=== PATIENT | female | born 1965 | race Caucasian/White ===

== ENCOUNTER 2016-06-20 13:45 | Outpatient (RCR) | payer BC ==
[~2016-06-20 13:45] MED LIST: CYMBALTA 60MG60 MG PO; FORT1000TA PO; HYZAAR 25 MG-101 TAB PO; IRON325 M1 PO; LOTRISONE 0.05%1 CRE TP; MOBIC 7.5MG7.5 MG PO; NEURONTIN100 MG/CAP PO; NEURONTIN300 MG/CAP PO; OXYCONTIN 10MG10 MG PO; PRILOSEC 20MG20 MG PO; SYNTHROID0.2 MG/TAB PO; ULTRAM 50MG TAB50 MG PO; ZOVIRAX400 MG PO; [UNRECOGNIZED DRUG - CODE] NS; [UNRECOGNIZED DRUG - OTHER] PO
== END 2016-06-21 | disposition home or self-care (01) ==
LOC: WSPT
DX: M54.5 Low back pain (principal); M53.3 Sacrococcygeal disorders, not elsewhere classified

== ENCOUNTER 2016-07-11 13:15 | Outpatient (RCR) | payer BC | END 2016-08-10 12:07 | disposition home or self-care (01) | LOC: WSPT 13:15 | DX: M54.89 Other dorsalgia (principal); M53.3 Sacrococcygeal disorders, not elsewhere classified ==

== ENCOUNTER → 2016-11-02 | Outpatient (CLI) | payer BC | LOC: MC.RAD 13:40 | DX: Z12.31 Encounter for screening mammogram for malignant neoplasm of breast (principal) ==

== ENCOUNTER → 2018-02-27 | Outpatient (CLI) | payer BC | LOC: MHCPAIN 14:14 | DX: G89.29 Other chronic pain (principal); M47.817 Spondylosis without myelopathy or radiculopathy, lumbosacral region; M53.3 Sacrococcygeal disorders, not elsewhere classified | CPT/HCPCS: G0463 ==

== ENCOUNTER → 2018-03-01 | Outpatient (CLI) | payer BC | LOC: MHCPAIN 14:30 | DX: M47.817 Spondylosis without myelopathy or radiculopathy, lumbosacral region (principal); M54.16 Radiculopathy, lumbar region ==

== ENCOUNTER → 2018-03-06 | Outpatient (CLI) | payer BC | LOC: MHCPAIN 12:15 | DX: G89.29 Other chronic pain (principal); M47.817 Spondylosis without myelopathy or radiculopathy, lumbosacral region; M53.3 Sacrococcygeal disorders, not elsewhere classified | CPT/HCPCS: G0463 ==

== ENCOUNTER → 2018-03-22 | Outpatient (CLI) | payer BC | LOC: MHCPAIN 11:59 | DX: M47.817 Spondylosis without myelopathy or radiculopathy, lumbosacral region (principal); M54.16 Radiculopathy, lumbar region | CPT/HCPCS: J2250; J3010 ==

== ENCOUNTER → 2018-03-26 | Outpatient (CLI) | payer BC | LOC: MHCPAIN 11:59 | DX: M47.817 Spondylosis without myelopathy or radiculopathy, lumbosacral region (principal); M54.16 Radiculopathy, lumbar region | CPT/HCPCS: J2250; J3010 ==

== ENCOUNTER 2018-05-16 12:45 | Outpatient (RCR) | payer BC | END 2018-06-26 | disposition still patient (30) | LOC: WSPT | DX: M47.817 Spondylosis without myelopathy or radiculopathy, lumbosacral region (principal); M53.3 Sacrococcygeal disorders, not elsewhere classified; G89.29 Other chronic pain ==

== ENCOUNTER → 2018-05-30 | Outpatient (CLI) | payer BC | LOC: MHCPAIN 12:30 | DX: G89.29 Other chronic pain (principal); M47.817 Spondylosis without myelopathy or radiculopathy, lumbosacral region; M53.3 Sacrococcygeal disorders, not elsewhere classified | CPT/HCPCS: G0463 ==

== ENCOUNTER → 2018-09-25 | Outpatient (CLI) | payer BC, MEDICARE | LOC: MHCPAIN 12:48 | DX: G89.29 Other chronic pain (principal); M47.817 Spondylosis without myelopathy or radiculopathy, lumbosacral region; M54.16 Radiculopathy, lumbar region; M53.3 Sacrococcygeal disorders, not elsewhere classified | CPT/HCPCS: G0463 ==

== ENCOUNTER → 2019-06-03 | Outpatient (CLI) | payer BC, MEDICARE | LOC: MC.RAD 13:32 | DX: Z12.31 Encounter for screening mammogram for malignant neoplasm of breast (principal) ==

== ENCOUNTER 2020-05-20 15:21 | Emergency (ER) | payer BC, MEDICARE ==
[~2020-05-20] VITALS: Ht 167.6 cm; Wt 152.3 kg
[2020-05-20 16:53] LABS: BASO # 0.1 (0.0-0.2); BASO % 0.8 % (0.0-2.0); EOS # 0.2 (0.0-0.7); EOS % 2.4 % (0-4.0); GRAN # 5.6 (1.4-6.5); GRAN % 60.9 % (42.2-75.2); HEMATOCRIT 48.4 % (37.0-47.0); LYMPH # 2.3 (1.2-3.4); LYMPH % 24.4 % (20.0-51.0); MEAN CELL VOLUME 83 fl (80.0-100.0); MEAN CORPUSCULAR HEMOGLOBIN 28 pg (27.0-31.0); MEAN CORPUSCULAR HGB CONC 33 g/dl (33.0-37.0); MEAN PLATELET VOLUME 10.5 fl (7.4-10.4); MONO % 11.1 % (1.7-9.3); PLATELET COUNT 261 K/mm3 (130-400); RED BLOOD COUNT 5.82 M/mm3 (4.10-5.30)
[2020-05-20 17:14] LABS: ALBUMIN 4.3 gm/dL (3.5-5.0); BILIRUBIN,TOTAL 0.6 mg/dL (0.0-1.0); C-REACTIVE PROTEIN 7.2 mg/dL (0.0-0.9); CALCIUM 9.3 mg/dL (8.4-10.2); CREATININE, serum 0.7 (0.52-1.25); POTASSIUM 3.5 mmol/L (3.4-5.0); TOTAL PROTEIN 7.7 gm/dL (6.4-8.2)
[2020-05-20 18:03] LABS: INR 1.1 (0.8-3.0); PROTHROMBIN TIME 12.4 SECONDS (9.7-12.8)
[2020-05-20] MEDS ORDERED: CLEOCIN HCL300 MG PO (20:00)
[2020-05-20 20:25] VITALS: BP 118/64; PULSE 71; TEMP 98.9
== END 2020-05-20 20:25 | disposition home or self-care (01) ==
LOC: COL.ER 15:21
PROVIDERS: Nurse Practitioner
DX: L03.115 Cellulitis of right lower limb (principal); Z20.822 Contact with and (suspected) exposure to COVID-19; Z79.84 Long term (current) use of oral hypoglycemic drugs
CPT/HCPCS: Q9967

== ENCOUNTER → 2020-05-22 | Outpatient (CLI) | payer BC, MEDICARE ==
[~2020-05-22] MED LIST changes: +CLEOCIN HCL300 MG PO
== END ==
LOC: COL.VAS 12:22
DX: M79.661 Pain in right lower leg (principal); M79.89 Other specified soft tissue disorders; L53.9 Erythematous condition, unspecified

== ENCOUNTER 2020-09-07 15:45 | Outpatient (RCR) | payer SELFPAY | END 2020-11-09 | disposition home or self-care (01) | LOC: COL.CR | DX: Z02.89 Encounter for other administrative examinations (principal) ==

== ENCOUNTER → 2021-06-30 | Outpatient (CLI) | payer BC, MEDICARE | LOC: MC.RAD 09:40 | DX: Z12.31 Encounter for screening mammogram for malignant neoplasm of breast (principal) ==

== ENCOUNTER → 2021-11-30 | Outpatient (CLI) | payer BC, MEDICARE | LOC: COL.RAD 09:53 | DX: R10.9 Unspecified abdominal pain (principal) ==

== ENCOUNTER → 2023-06-08 | Outpatient (CLI) | payer BC, MEDICARE ==
[~2023-06-08] MED LIST changes: +Lidocaine PF 2% (20 MG/ML) 5 ML VIAL ONE; +Midazolam 2 MG/2 ML VIAL ONE; +fentaNYL 50 MCG/ML 2 ML VIAL ONE
== END ==
LOC: MHCPAIN 08:43
DX: M47.817 Spondylosis without myelopathy or radiculopathy, lumbosacral region (principal); M54.50 Low back pain, unspecified
CPT/HCPCS: J0665; J2250; J3010

== ENCOUNTER → 2023-08-08 | Outpatient (CLI) | payer BC, MEDICARE ==
[~2023-08-08] MED LIST changes: -Lidocaine PF 2% (20 MG/ML) 5 ML VIAL ONE; -Midazolam 2 MG/2 ML VIAL ONE; -fentaNYL 50 MCG/ML 2 ML VIAL ONE
== END ==
LOC: MHCPAIN 10:36
DX: M54.50 Low back pain, unspecified (principal); M47.896 Other spondylosis, lumbar region; E11.40 Type 2 diabetes mellitus with diabetic neuropathy, unspecified
CPT/HCPCS: G0463

== ENCOUNTER → 2024-02-15 | Outpatient (CLI) | payer BC, MEDICARE | LOC: MC.RAD 11:05 | DX: Z12.31 Encounter for screening mammogram for malignant neoplasm of breast (principal) ==